=== PATIENT | female | born 1955 | race Two or more races ===

== ENCOUNTER 2025-06-16 10:31 | Day surgery (SDC) | payer OTHER, MEDICAID ==
[2025-06-14 11:14] LABS: Hematocrit 38.6 % (36.0-46.0); Hemoglobin 13.2 g/dL (12.2-16.2); Mean Corpuscular Hemoglobin 30.7 pg (28.0-32.0); Mean Corpuscular Volume 89.9 fL (80.0-100.0); Nucleated Red Blood Cells % 0.0 %
[2025-06-14 11:15] LABS: Urine Protein, UAD Negative (Negative)
[2025-06-14 11:22] LABS: Alanine Aminotransferase 16 U/L (7-40); Albumin 4.3 g/dL (3.2-4.8); Alkaline Phosphatase 76 U/L (46-116); Anion Gap 8 (5-15); BUN/Creatinine Ratio 18.3 (10.0-20.0); Bilirubin, Total 0.4 mg/dL (0.2-1.0); Blood Urea Nitrogen 15 mg/dL (9-23); Calcium 9.2 mg/dL (8.7-10.4); Carbon Dioxide 30 mmol/L (20-31); Chloride 101 mmol/L (98-107); Potassium 3.8 mmol/L (3.5-5.1); Sodium 139 mmol/L (136-145); Total Protein 7.6 g/dL (5.7-8.2)
[2025-06-14 11:29] LABS: Glucose 120 mg/dL (74-106); INR 1.02 (0.9-1.15); Partial Thromboplastin Time 25.8 SEC (24.5-34.5); Prothrombin Time 10.8 sec (9.3-11.8)
[~2025-06-16] VITALS: Ht 154.9 cm; Wt 81.6 kg
[~2025-06-16 10:31] MED LIST: ASPI81CH59 PO; ATOR20TA PO; CHOL1TAB28 PO; FAMO-68 PO; FURO40TA4 PO; LEVO88CA3 PO; METF-489 PO; METO25TA5 PO; NIFE1TAB30 PO; ONDA-155 PO; SIME80CH49 PO; TRIA37.586 PO
[2025-06-16] MEDS ORDERED: METOCLOPRAMIDE HCL 5MG/ml INJ 2ml VIAL ONE (11:32)
[2025-06-16] MEDS ORDERED: ONDANSETRON HCL 4 MG/2 ML VIAL ONE (11:32)
[2025-06-16] MEDS ORDERED: LIDOCAINE 2% (LOCAL ANESTH.) PF 5ml SDV ONE (11:32)
[2025-06-16] MEDS ORDERED: PROPOFOL 10 MG/ML 20 ML IV ONE (11:33)
[2025-06-16] MEDS ORDERED: SODIUM CHLORIDE LOCK 10 ML ONE (11:49)
[2025-06-16 11:51] VITALS: PULSE 81; RESP 17; TEMP 97.1; O2SAT 100
[2025-06-16] MEDS ORDERED: SIMETHICONE 40 MG/0.6 ML ORAL DROP ONE (11:55)
--- NOTE | 2025-06-16 11:59 | DVHOP2 ---
Operative Report DATE OF OPERATION: 06/16/25 PROCEDURE: Diagnostic Colonoscopy. PREOPERATIVE INDICATION: The patient is a 70 -year-old female undergoing colonoscopy for colon cancer screening POSTOPERATIVE DIAGNOSES: 1. Trace internal hemorrhoids otherwise completely normal colonoscopy examination up to the cecum and terminal ileum PROCEDURE PERFORMED BY: Sallie Echols M.D. SCOPE: Olympus videocolonoscope. ASA CLASS: 3. PREOPERATIVE MEDICATIONS: Mac sedation, Robbin rehman PROCEDURE IN DETAIL: After obtaining an informed consent, the patient was placed on left lateral decubitus position. She was then sedated with the above medications. A rectal examination was performed that was normal. The colonoscope was then passed through the anus into the rectosigmoid and through the descending, transverse, and ascending colon up to the cecum with visualization of the appendiceal orifice, base of the cecum and the il eocecal valve. The colonoscope was then withdrawn. The distal 5 cm of the terminal ileum were normal No polyps or masses were seen. There was no colitis or clear-cut diverticular disease. On retroflexion patient had trace to 1+ internal hemorrhoids. The patient tolerated the procedure well without difficulty. WITHDRAWAL TIME: 9 minutes QUALITY OF THE PREP: Cobb Bowel Prep score: 8. COMPLICATIONS : None SPECIMENS: None DISPOSITION: Stable D/C to home PLAN: 1. Repeat colonoscopy in 10 years 2. Resume GI soft diet advance as tolerated 3. Increase fluid and fiber intake 4. Outpatient follow up with me in 4-6 weeks to review results and discuss further management SALLIE ECHOLS MD Jun 16, 2025 11:59
[2025-06-16 12:30] VITALS: BP 128/63; PULSE 84; RESP 16; O2SAT 96
== END 2025-06-16 12:41 | disposition home or self-care (01) ==
LOC: GI 10:31
PROVIDERS: ATTEND Internal Medicine Gastroenterology
DX: K59.09 Other constipation (principal); K64.8 Other hemorrhoids; E11.9 Type 2 diabetes mellitus without complications; I10 Essential (primary) hypertension; E03.9 Hypothyroidism, unspecified; Z98.890 Other specified postprocedural states; Z88.5 Allergy status to narcotic agent; Z79.82 Long term (current) use of aspirin; Z79.890 Hormone replacement therapy; Z79.84 Long term (current) use of oral hypoglycemic drugs; Z79.899 Other long term (current) drug therapy; Z98.891 History of uterine scar from previous surgery
CPT/HCPCS: 36415; 45378; 80053; 81001; 85025; 85610; 85730; J2003; J2405; J2704; J2765; J7030